=== PATIENT | male | born 2000 | race Caucasian/White ===

== ENCOUNTER 2020-12-21 13:15 | Emergency (ER) | payer SELFPAY ==
[2020-12-21 13:28] VITALS: BP 143/91; PULSE 59; RESP 18; TEMP 36.7; O2SAT 97; BMI 25.7
--- NOTE | 2020-12-21 14:35 | W.ED.GENADLT ---
HPI - General Adult General: Chief complaint: Headache Stated complaint: headache, slurring, dizzy Time Seen by Provider: 12/21/20 14:05 History of Present Illness: HPI narrative: Patient is a 20-year-old male without any significant past medical history presents emergency room with diarrhea x3 days, feeling weak all over, and L sided headache and L arm tingling x 2 days. Patient says that he first developed symptoms on Tuesday while he is at work. Since then, patient has been feeling increasingly more tired. There is no sick contact at home. Patient denies any family history of subarachnoid hemorrhage, head trauma, IV drug use, fever or chills, focal weakness, diplopia, or slurring of speech. Patient also denies any nausea or vomiting but reports decreased p.o. intake. The headache is not sudden onset, has gradually worsened in the last 2 days. Patient denies any neck stiffness. Has not been vaccinated for Covid. Has not been in contact with any Covid positive personnels. Onset:3 days ago Duration:3 days Location:home Severity:moderate Review of Systems Narrative: Constitutional: No fever, +chills, +generalized weakness HEENT: No vision changes CV: No chest pain, no palpitations PULM: no cough, no dyspnea. GI: No abdominal pain, -N/-V/+D. : No dysuria MSKEL: No muscle pain SKIN: No new rashes, no lesions. NEURO: +headache, no focal weakness. +L arm tingling HEME: No visible bruises PSYCH: Normal mood Physical Exam Narrative: EXAM NARRATIVE: Head: Atraumatic Eyes: PERRL, conjunctiva without injection ENT: Mucous membrane moist NECK: Supple, ROM intact, no nuchal rigdity LUNGS: LCTAB, no crackles/rhonchi CV: RRR, 2+ distal radial pulses b/l ABDOMEN: Soft, nontender in all quadrants EXTREMITY: Normal ROM SKIN: No rash or erythema NEURO: Mental status? Awake, alert, and oriented to self, year, month, location, and situation.? Following simple axial and appendicular commands.? Has appropriate fund of knowledge, comprehension, and insight.? Able to recall and understands pertinent aspects of medical history and current treatment status.? ? Language? Speech is fluent without word-finding difficulties.? Intact naming, expression, bookkeeper receptionist, and repetition.? ? Cranial nerves? 2,3,4,6: PERRL, EOMI with no nystagmus. 5: Intact sensation to light touch, symmetric? 7: Smile symmetrical, no facial droop.? 8: Hearing grossly intact.? 9,10: Normal palate movement.? 11: Normal strength in trapezius bilaterally 12: Tongue protrudes midline.? ? Motor examination? Normal bulk & tone. Strength as follows (R/L): Delts (5/5), Biceps (5/5), Triceps (5/5), Wrist ext (5/5), hip flexors (5/5), plantarflexors (5/5), dorsiflexors (5/5). Sensation? Light Touch: Grossly intact and equal in upper and lower extremities bilaterally? Romberg: Negative.? Distal joint position sense intact ? Coordination? Oeoztv-so-lqzf-finger movements intact without dysmetria or past-pointing.? Rapid fingertaps: preserved amplitude without decriment.? No tremor, myoclonus or truncal ataxia.? ? Gait/stance? Steady, normal narrow base gait with appropriate arm swing and turning.? Tandem gait without hesitation or loss of balance. PSYCH: Normal mood and affect Course Vital Signs: Vital signs: Vital Signs Temperature 98.1 F 12/21/20 13:28 Pulse Rate 59 L 12/21/20 13:28 Respiratory Rate 18 12/21/20 13:28 Blood Pressure 143/91 12/21/20 13:28 Pulse Oximetry 97 12/21/20 13:28 MDM - General Adult MDM Narrative: Medical decision making narrative: 20-year-old male presented to emergency room with left-sided headache left arm tingling in the setting of generalized weakness diarrhea and feeling fatigued. On exam, patient is hemodynamically stable. Afebrile today. Neuro exam is intact. I do not suspect meningitis or sepsis at this time. Does not suspect SAH given this is not worst headache of life and sudden in onset. Did not reach maximal intensity over first 1-2 hours. Unlikely to be stroke, aortic dissection, or acute brain bleed given associated symptoms. Findings likely consistent with early viral symptoms. Work-up today include CBC, BMP, IVF, Covid PCR/antigen Covid antigen negative, PCR pending. Has been able to tolerate p.o. in the emergency room. Reports symptom improvement after magnesium, IVF, Tylenol. At the present time, do not suspect acute brain bleed or meningitis. Neuro exam continues to be intact. Patient ambulated without difficulty. I have given patient strict return precautions for any worsening pain, fever/chills, neck stiffness, focal weakness, any new or concerning complaints. Physician: Discharge. Lab Data: Labs: Lab Results 12/21/20 12/21/20 12/21/20 Range/Units 14:57 14:57 14:57 WBC 7.9 (4.0-10.0) 10^3/ uL RBC 4.95 (4.1-5.3) 10^6/u L Hgb 15.6 (11.7-16.6) g/dL Hct 45.4 (42.0-52.0) % MCV 91.7 (80-94) fl MCH 31.5 (28.0-34.0) pg MCHC 34.4 (30.0-36.0) g/dL RDW 12.6 (12.1-15.1) % Plt Count 322 (130-400) 10^3/c mm MPV 11.2 H (7.4-10.4) fL Neut % (Auto) 45.9 % Lymph % (Auto) 37.0 % Evans % (Auto) 9.9 % Eos % (Auto) 6.1 % Baso % (Auto) 1.0 % Neut # (Auto) 3.63 (1.8-7.7) 10^3/u L Lymph # (Auto) 2.9 (0.8-4.8) 10^3/u L Evans # (Auto) 0.8 (0.2-0.9) 10^3/u L Eos # (Auto) 0.5 (0.0-0.8) 10^3/u L Baso # (Auto) 0.1 (0.0-0.1) 10^3/u L Nucleated RBC % (a uto) 0 % Nucleated RBCs # 0.0 /100WBC Sodium 143 (136-145) mmol/L Potassium 3.7 (3.5-5.1) mmol/L Chloride 107 (98-107) mmol/L Carbon Dioxide 25 (22-29) mmol/L Anion Gap 14.7 (5-19) BUN 9 (6-20) mg/dL Creatinine 0.8 (0.7-1.2) mg/dL GFR Calculation 122.0 (90-130) mL/min Glucose 85 (65-115) mg/dL Calculated Osmolal ity 294 (285-295) mOsm/k g Calcium 9.4 (8.5-10.5) mg/dL SARS-CoV-2 Ag (Rap id) Negative (Negative) Discharge Plan Discharge Patient Disposition: Home Clinical Impression: Headache, Generalized weakness, Diarrhea Condition: Stable Prescriptions: New acetaminophen 500 mg tablet 500 mg PO TID PRN (Reason: pain) 7 Days Qty: 21 RF: 0 ibuprofen 400 mg tablet 400 mg PO Q8H PRN (Reason: pain) 7 Days Qty: 21 RF: 0 Discharge Orders: Discharge ED (Routine); Ordered 12/21/20 Ordered By: Sujit Felix Discharge Diet: Advance as tolerated Discharge Activity: Resume usual activity Patient Instructions: Acute Headache (ED) Activity Restrictions/Additional Instructions: Please follow-up with your primary care provider in the next 1 to 2 days. Please follow-up with our PCR result for your Covid test. Come back to the emergency room you have any worsening headache, fever/chills, not able to hold anything down, or any new or concerning complaints. 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
[2020-12-21] MEDS: magnesium sulfate premix 2 GM/50 ML PIGGYBACK IV (15:09)
[2020-12-21] MEDS: acetaminophen 500 mg Tablet PO (15:09)
[2020-12-21] MEDS: sodium chloride 0.9% 1,000 ML 999 ML IV (15:09)
[2020-12-21] MEDS: diphenhydrAMINE 50 mg/mL SDV 1mL IVP (15:09)
[2020-12-21 15:26] LABS: Basophils # 0.1 10^3/uL (0.0-0.1); Eosinophils # 0.5 10^3/uL (0.0-0.8); Eosinophils % 6.1 %; Hematocrit 45.4 % (42.0-52.0); Hemoglobin 15.6 g/dL (11.7-16.6); Lymphocytes # 2.9 10^3/uL (0.8-4.8); Mean Corpuscular HGB Conc 34.4 g/dL (30.0-36.0); Mean Corpuscular Hemoglobin 31.5 pg (28.0-34.0); Mean Corpuscular Volume 91.7 fl (80-94); Mean Platelet Volume 11.2 fL (7.4-10.4); Monocytes # 0.8 10^3/uL (0.2-0.9); Monocytes % 9.9 %; Neutrophils # 3.63 10^3/uL (1.8-7.7); Neutrophils % 45.9 %; Nucleated Red Blood Cells % 0 %; Platelet Count 322 10^3/cmm (130-400); Red Blood Count 4.95 10^6/uL (4.1-5.3); Red Cell Distribution Width 12.6 % (12.1-15.1); White Blood Count 7.9 10^3/uL (4.0-10.0)
[2020-12-21 15:41] LABS: Anion Gap 14.7 (5-19); Blood Urea Nitrogen 9 mg/dL (6-20); Calcium 9.4 mg/dL (8.5-10.5); Carbon Dioxide 25 mmol/L (22-29); Chloride 107 mmol/L (98-107); Glucose 85 mg/dL (65-115); Osmolality Calculated 294 mOsm/kg (285-295); Potassium 3.7 mmol/L (3.5-5.1); Sodium 143 mmol/L (136-145)
[2020-12-21 16:21] LABS: SARS Covid-2 Antigen Negative (Negative)
--- NOTE | 2020-12-22 12:37 | DCPLANNER ---
betting agency manager had message to speak with patient about getting established with a primary care physician. betting agency manager called phone number [phone], spoke with patients friend. betting agency manager left message for patient to return pillowcase turner phone call if patient wanted help in getting established with a primary care.
[2020-12-22 15:35] LABS: Coronavirus Test Green County Not Detected
== END 2020-12-21 19:20 | disposition home or self-care (01) ==
PROVIDERS: Emergency Provider Emergency Medicine
DX: R51.9 Headache, unspecified (principal); R53.1 Weakness; R19.7 Diarrhea, unspecified; Z20.822 Contact with and (suspected) exposure to COVID-19
CPT/HCPCS: 80048; 85025; 87426; 87635; 96365; 96375; 99283; J1200; J3475; J7030